=== PATIENT | male | born 1985 | race Caucasian/White ===

== ENCOUNTER 2017-09-19 23:19 | Emergency (ER) | payer SELFPAY ==
[2017-09-19] MEDS ORDERED: ONDANSETRON HCL IV 4 MG/2 ML VIAL IVP ONE (23:38)
[2017-09-19] MEDS ORDERED: HYDROMORPHONE HCL 1MG/ML **SYRINGE IVP ONE (23:38)
--- NOTE | 2017-09-19 23:44 | Emergency Department Record ---
History of Present Illness - General Chief complaint: Pain Stated complaint: RT SIDE RIB INJURY Time Seen by Provider: 09/19/17 23:35 Source: Patient Mode of Arrival: Ambulatory Limitations: No limitations - History of Present Illness Initial comments: 32 yo male presents to ED for evaluation of injury to the right trunk following fall. Patient reports that the front steps of his home were removed as they are being remodeled, reports that he stepped out of front door and fell approximately four feet onto a concrete rebar sticking our from the [facility]. Patient reports pain to the right lateral chest wall, denies numbness, tingling, or abdominal pain symptoms. Patient reports chest wall pain and difficulty breathing, was able to drive himself to the ED for evaluation. MD Complaint: Other (chest wall pain) Onset/Timin -: Minutes(s) Location: Right Severity scale (1-10): 10 Quality: Stabbing Consistency: Constant Improves with: Nothing Worsens with: Nothing Associated Symptoms: Shortness of breath - Related Data Previous Rx's Medication Instructions Recorded Hydrocodone/Acetaminophen [[place] 1 each PO Q6H PRN #20 tablet 09/20/17 7.5-325 Tablet] Lidocaine Patch [Lidoderm] 1 ea TOP Q12H #15 patch 09/20/17 Allergies Allergy/AdvReac Type Severity Reaction Status Date / Time No Known Drug Allergies Allergy Verified 09/19/17 23:30 Travel Screening - Travel/Exposure Within Last 30 Days Have you traveled within the last 30 days?: No Review of Systems Constitutional: Denies: Chills, Fever, Malaise, Night sweats Eyes: Denies: Eye discharge, Eye pain ENT: Denies: Congestion, Ear pain, Epistaxis Respiratory: Reports: Dyspnea. Denies: Cough Cardiovascular: Reports: Chest pain. Denies: Dyspnea on exertion Endocrine: Denies: Fatigue, Heat or cold intolerance Gastrointestinal: Denies: Abdominal pain, Nausea, Vomiting Genitourinary: Denies: Incontinence, Retention Musculoskeletal: Reports: Back pain. Denies: Arthralgia, Gout, Joint swelling Skin: Denies: Bruising, Change in color Neurological: Denies: Abnormal gait, Confusion, Headache, Seizure Psychiatric: Denies: Anxiety Hematological/Lymphatic: Denies: Anemia, Blood Clots Past Medical History - SOCIAL HISTORY Smoking Status: Never smoker Alcohol Use: None Drug Use: None - RESPIRATORY Hx Respiratory Disorders: No - CARDIOVASCULAR Hx Cardio Disorders: No - NEURO Hx Neuro Disorders: No - GI Hx GI Disorders: No - Hx Genitourinary Disorders: No - ENDOCRINE Hx Endocrine Disorders: No - MUSCULOSKELETAL Hx Musculoskeletal Disorders: No - PSYCH Hx Psych Problems: No - HEMATOLOGY/ONCOLOGY Hx Hematology/Oncology Disorders: No Family Medical History Any Significant Family History?: No Physical Exam - General General Appearance: Alert, Oriented x3, Cooperative, Moderate distress Limitations: No limitations - Head Head exam: Atraumatic, Normocephalic, Normal inspection Head exam detail: negative: Abrasion, Contusion, Regan's sign, General tenderness, Hematoma, Laceration - Eye Eye exam: Normal appearance. negative: Conjunctival injection, Periorbital swelling, Periorbital tenderness, Scleral icterus - ENT Ear exam: negative: Auricular hematoma, Auricular trauma Nasal Exam: negative: Active bleeding, Discharge, Dried blood, Foreign body Mouth exam: negative: Drooling, Laceration, Muffled voice, Tongue elevation - Neck Neck exam: Normal inspection. negative: Meningismus, Tenderness - Respiratory Respiratory exam: Normal lung sounds bilaterally, Chest wall tenderness (right lateral chest wall around rib number 6 superiorly and inferiorly), Other ( splinting is present due to chest wall pain.). negative: Rales, Rhonchi, Stridor - Cardiovascular Cardiovascular Exam: Regular rate, Normal rhythm, Normal heart sounds - GI/Abdominal GI/Abdominal exam: Soft. negative: Rebound, Rigid, Tenderness - Rectal Rectal exam: Deferred - exam: Deferred - Extremities Extremities exam: Normal inspection. negative: Calf tenderness, Pedal edema, Tenderness - Back Back exam: Denies: CVA tenderness (R), CVA tenderness (L) - Neurological Neurological exam: Alert, Normal gait, Oriented X3 - Psychiatric Psychiatric exam: Normal affect, Normal mood - Skin Skin exam: Normal color. negative: Abrasion Type of lesion: negative: abrasion Course - Reevaluation(s) Reevaluation #1: 09/20/17 00:48 CT Chest w/o contrast: Isoalted non-displaced fracture 5th rib, chest wall contusion, no pneumothorax. Patient was updated on all results, reports that his pain symptoms are controlled at this time, and he appears stable for discharge at this time. Disposition Disposition: Discharge Clinical Impression: Rib fracture Qualifiers: Encounter type: initial encounter Rib fracture type: single rib Fracture type: closed Laterality: right Qualified Code(s): S22.31XA - Fracture of one rib, right side, initial encounter for closed fracture Disposition: Home, Self-Care Condition: (2) Stable Instructions: Rib Fracture (ED) Additional Instructions: Return to ED if your symptoms worsen or if you have any concerns. [place] and Lidoderm patches as directed. Incentive Spirometry as directed. Follow-up with your family doctor in 1-3 days as directed. Prescriptions: Hydrocodone/Acetaminophen [[place] 7.5-325 Tablet] 1 each PO Q6H PRN #20 tablet PRN Reason: Pain - Moderate (5-7) Lidocaine Patch [Lidoderm] 1 ea TOP Q12H #15 patch Forms: Patient Portal Access Time of Disposition: 00:53 Quality - Quality Measures Quality Measures: N/A - Blood Pressure Screening Does Patient Have Any of the Following: No Blood Pressure Classification: Pre-Hypertensive BP Reading Systolic Measurement: 125 Diastolic Measurement: 74 Screening for High Blood Pressure: < Pre-Hypertensive BP, F/U Documented > [ G8950] Pre-Hypertensive Follow-up Interventions: Referral to alternative/primary care provider.
[2017-09-19] MEDS ORDERED: 0.9 % SODIUM CHLORIDE 1000ML 1,000 ML IV SCH (23:45)
[2017-09-20] MEDS ORDERED: HYDROMORPHONE HCL 1MG/ML **SYRINGE IVP ONE (00:38)
[2017-09-20] MEDS ORDERED: LIDOCAINE 5% PATCH TOP ONE (00:39)
[2017-09-20] MEDS ORDERED: ONDANSETRON HCL IV 4 MG/2 ML VIAL IVP ONE (00:54)
--- NOTE | 2017-09-21 06:11 | CT SCAN REPORT ---
DATE: 09/20/2017 at 12:10 p.m. EXAM: CT OF THE CHEST WITHOUT CONTRAST. HISTORY: The patient fell with right-sided chest pain and right rib pain with bruising and also right upper quadrant abdominal rib pain. TECHNIQUE: Axial CT scan of the chest was performed without intravenous contrast. Preliminary report provided by [facility]. COMPARISON: No prior chest CT or chest x-ray. FINDINGS: No pneumothorax identified. No acute infiltrate is seen. No pleural or pericardial effusion evident. Heart size is normal. No definite hilar or mediastinal adenopathy seen. There is a small amount of relatively symmetric-appearing breast tissue bilaterally, presumably gynecomastia. There is some hazy density in the subcutaneous tissues of the right lower lateral chest wall, probably representing some mild chest wall contusion. In addition, there appears to be an essentially undisplaced fracture laterally in the right fifth rib. IMPRESSION: 1. APPEARANCE CONSISTENT WITH A SMALL AMOUNT OF CHEST WALL CONTUSION LATERALLY ALONG THE RIGHT LOWER HEMITHORAX WITH AN UNDERLYING, ESSENTIALLY UNDISPLACED RIGHT FIFTH RIB FRACTURE. 2. NO UNDERLYING PNEUMOTHORAX OR PULMONARY PARENCHYMAL CONTUSION EVIDENT. 3. A SMALL AMOUNT OF BREAST TISSUE BILATERALLY, LIKELY GYNECOMASTIA. JOB NUMBER: [id number] MTDD
== END 2017-09-20 01:17 | disposition home or self-care (01) ==
LOC: ER 23:19
DX: S22.31XA Fracture of one rib, right side, initial encounter for closed fracture (principal); R06.02 Shortness of breath; W17.89XA Other fall from one level to another, initial encounter; Y92.008 Other place in unspecified non-institutional (private) residence as the place of occurrence of the external cause
CPT/HCPCS: 99284 ×2; 96376; 96374; 96375; 71250; 94010; J2405 ×2; J1170 ×2; J7030

== ENCOUNTER 2018-03-01 07:01 | Emergency (ER) | payer SELFPAY ==
--- NOTE | 2018-03-01 07:17 | Emergency Department Record ---
History of Present Illness - General Chief Complaint: Abdominal Pain Stated Complaint: ABDOMINAL PAIN Time Seen by Provider: 03/01/18 07:16 Source: Patient Mode of Arrival: Ambulatory Limitations: No limitations - History of Present Illness Initial Comments: 32 yo male presents with lower abdominal pain on the left. The onset was last night. He has nausea with the pain. No vomiting. No diarrhea. He has had small hard bowel movements without relief. He has a history of anal fissures with pain with hard bowel movements. He does have a history of diverticulosis at the age of 25. No known history of Crohn's or UC. No fever. No history of abdominal surgery. He did have a colonoscopy at the time of colonoscopy that confirmed the diverticula. No current PCP. MD Complaint: Abdominal pain -: Days(s) (1) Location: LLQ Radiation: LLQ Migration to: LLQ Severity: Moderate Quality: Aching Consistency: Constant Improves With: Nothing Worsens With: Nothing - Related Data Previous Rx's Medication Instructions Recorded Docusate Sodium [Colace] 100 mg PO BID #60 cap 03/01/18 Allergies Allergy/AdvReac Type Severity Reaction Status Date / Time No Known Drug Allergies Allergy Verified 03/01/18 07:08 Review of Systems Constitutional: Denies: Chills, Fever, Malaise, Weakness Eyes: Denies: Eye discharge ENT: Denies: Congestion, Throat pain Respiratory: Denies: Cough, Dyspnea, Hemoptysis, Stridor, Wheezes Cardiovascular: Denies: Chest pain, Palpitations, Syncope Endocrine: Denies: Fatigue Gastrointestinal: Reports: As per HPI, Abdominal pain, Nausea. Denies: Diarrhea , Hematemesis, Vomiting Genitourinary: Denies: Dysuria, Frequency, Hematuria Musculoskeletal: Denies: Arthralgia, Back pain, Joint swelling, Myalgia, Neck pain Skin: Denies: Bruising, Change in color, Rash Neurological: Denies: Headache, Numbness, Weakness Psychiatric: Denies: Anxiety Hematological/Lymphatic: Denies: Blood Clots, Easy bleeding, Easy bruising, Swollen glands Past Medical History - SOCIAL HISTORY Smoking Status: Never smoker Drug Use: None - RESPIRATORY Hx Respiratory Disorders: No - CARDIOVASCULAR Hx Cardio Disorders: No - NEURO Hx Neuro Disorders: No - GI Hx GI Disorders: No - Hx Genitourinary Disorders: No - ENDOCRINE Hx Endocrine Disorders: No - MUSCULOSKELETAL Hx Musculoskeletal Disorders: No - PSYCH Hx Psych Problems: No - HEMATOLOGY/ONCOLOGY Hx Hematology/Oncology Disorders: No Physical Exam - General General Appearance: Alert, Oriented x3, Cooperative, No acute distress Limitations: No limitations - Head Head exam: Atraumatic, Normal inspection - Eye Eye exam: Normal appearance. negative: Conjunctival injection, Scleral icterus - ENT ENT exam: Normal exam Ear exam: Normal external inspection Nasal Exam: Normal inspection Mouth exam: Normal external inspection Teeth exam: Normal inspection - Neck Neck exam: Normal inspection - Respiratory Respiratory exam: Normal lung sounds bilaterally. negative: Respiratory distress - Cardiovascular Cardiovascular Exam: Regular rate, Normal rhythm, Normal heart sounds - GI/Abdominal GI/Abdominal exam: Soft, Normal bowel sounds, Tenderness (tender LLQ, soft. Remainder of the abdomen is very soft). negative: Diminished bowel sounds, Distended, Guarding, Hernia, Rebound, Rigid - Rectal Rectal exam: Deferred - exam: Deferred - Extremities Extremities exam: Normal inspection, Full ROM, Normal capillary refill. negative: Pedal edema, Tenderness - Back Back exam: Reports: Normal inspection, Full ROM. Denies: Muscle spasm, Rash noted, Tenderness - Neurological Neurological exam: Alert, Normal gait, Oriented X3 - Psychiatric Psychiatric exam: Normal affect, Normal mood - Skin Skin exam: Dry, Intact, Normal color, Warm Course - Reevaluation(s) Reevaluation #1: Given the location of the abdominal pain and his history of diverticulosis CT ordered. 03/01/18 07:27 03/01/18 07:53 The CBC and CMP were reviewed. No acute changes The Lipase is normal. 03/01/18 09:12 The UA is negative 03/01/18 09:[address] scan was reviewed. No acute inflammation. Abundant stool in the colon otherwise negative. 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 He will be given stool softeners and information for constipation 03/01/18 09:33 The patient is stable for DC. No fever, no elevated WBC, no acute findings on the CT He was given instructions for reasons to return Medical Decision Making - Lab Data Result diagrams: 03/01/18 07:30 03/01/18 07:30 Disposition Disposition: Discharge Clinical Impression: Abdominal pain, Constipation Disposition: Home, Self-Care Condition: (1) Good Instructions: Constipation (ED), Abdominal Pain (ED) Additional Instructions: Increase your fiber with fruits and vegetables Increase your hydration Take the stools softeners as well. Return if worse, fever, vomiting or new concerns. Prescriptions: Docusate Sodium [Colace] 100 mg PO BID #60 cap Forms: Patient Portal Access Time of Disposition: 09:32 Quality - Quality Measures Quality Measures: N/A - Blood Pressure Screening Does Patient Have Any of the Following: No Blood Pressure Classification: Hypertensive Reading Systolic Measurement: 150 Diastolic Measurement: 97 Screening for High Blood Pressure: < Pre-Hypertensive BP, F/U Documented > [ G8950] Pre-Hypertensive Follow-up Interventions: Referral to alternative/primary care provider.
[2018-03-01] MEDS: KETOROLAC 30 MG/ML VIAL IVP ONE (07:33)
[2018-03-01 07:34] LABS: BASO % 0.8 % (0-6); EOS % 3.4 % (0-6); HEMATOCRIT 46.5 % (42.0-52.0); MEAN CELL VOLUME 92.6 fl (81-97); MEAN CORPUSCULAR HEMOGLOBIN 31.9 pg (27-33); MEAN CORPUSCULAR HGB CONC 34.4 g/dl (32-36); MEAN PLATELET VOLUME 9.9 fl (7.4-10.4); MONO % 9.8 % (0-9); PLATELET COUNT 269 K/uL (130-400); RED BLOOD COUNT 5.02 M/uL (4.40-5.70); RED CELL DISTRIBUTION WIDTH 13.2 % (11.5-14.5); WHITE BLOOD COUNT W/O DIFF 7.7 K/uL (4.2-12.2)
[2018-03-01] MEDS: ONDANSETRON HCL IV 4 MG/2 ML VIAL IVP ONE (07:34)
[2018-03-01] MEDS: ACETAMINOPHEN 1,000 MG/100 ML BTL IVPB ONE (07:34)
[2018-03-01] MEDS: 0.9 % SODIUM CHLORIDE 1,000 ML BAG IV ONE (07:34)
[2018-03-01 07:44] LABS: BLOOD UREA NITROGEN 14 mg/dL (6-20); EST GLOMERULAR FILTRATION RATE > 60 mL/min
[2018-03-01 07:45] LABS: TOTAL PROTEIN 6.9 g/dL (6.6-8.7)
[2018-03-01 07:47] LABS: GLUCOSE,RANDOM 109 mg/dL (74-109)
[2018-03-01 07:49] LABS: ALB/GLOB RATIO 1.9 (1.1-1.8); ALBUMIN 4.5 g/dL (4.0-5.0); ALKALINE PHOSPHATASE 101 U/L (40-129); ALT/SGPT 16 U/L (<41); AST/SGOT 17 U/L (10.0-50.0)
[2018-03-01 07:50] LABS: LIPASE 17 U/L (13-60)
[2018-03-01 08:23] LABS: URINE APPEARANCE CLEAR; URINE BILIRUBIN NEGATIVE (NEGATIVE); URINE BLOOD NEGATIVE (NEGATIVE); URINE COLOR YELLOW; URINE GLUCOSE (UA) NEGATIVE (NEGATIVE); URINE KETONE NEGATIVE (NEGATIVE); URINE LEUKOCYTE ESTERASE NEGATIVE (NEGATIVE); URINE NITRITE NEGATIVE (NEGATIVE); URINE PROTEIN NEGATIVE (NEGATIVE); URINE UROBILINOGEN 0.2 E.U./dL (0.20 - 1.00)
--- NOTE | 2018-03-01 12:50 | CT SCAN REPORT ---
EXAM: CT OF THE ABDOMEN AND PELVIS HISTORY: ABDOMINAL PAIN. TECHNIQUE: CT of the abdomen and pelvis was performed following IV administration of 100 ml of Omnipaque 300 contrast. Oral contrast was also utilized. Comparison: 04/14/13 CT. FINDINGS: Limited evaluation of the lung bases is unremarkable. The osseous structures are grossly intact. Small hiatal hernia. The liver, spleen, adrenal glands, pancreas, and kidneys are unremarkable. The gallbladder is present. No evidence for bowel obstruction. Normal appendix. Abundant stool in the colon. No free air or free fluid. IMPRESSION: ABUNDANT STOOL IN THE COLON. NEGATIVE FOR ACUTE INTRAABDOMINAL/PELVIC PROCESS. JOB NUMBER: [id number] MTDD
== END 2018-03-01 09:44 | disposition home or self-care (01) ==
LOC: ER 07:01
DX: K59.00 Constipation, unspecified (principal); R10.32 Left lower quadrant pain; R11.0 Nausea
CPT/HCPCS: 74177; 80053; 81003; 83690; 85025; 96361; 96365; 96375; 99284; J1885; J2405; J7030